=== PATIENT | female | born 1970 | race Caucasian/White ===

== ENCOUNTER 2017-03-01 23:38 | Emergency (ER) | payer SELFPAY ==
[2017-03-02] MEDS ORDERED: Cyclobenzaprine 10 MG TAB ONE (02:16)
[2017-03-02] MEDS ORDERED: Ibuprofen 800 MG TAB ONE (02:16)
== END 2017-03-02 02:57 | disposition home or self-care (01) ==
LOC: ERS 23:38
DX: S80.211A Abrasion, right knee, initial encounter (principal); S80.212A Abrasion, left knee, initial encounter; S90.512A Abrasion, left ankle, initial encounter; F32.9 Major depressive disorder, single episode, unspecified; Y04.8XXA Assault by other bodily force, initial encounter; Y92.79 Other farm location as the place of occurrence of the external cause; Z79.899 Other long term (current) drug therapy
CPT/HCPCS: 99283